=== PATIENT | male | born 1975 | race African-American/Black ===

== ENCOUNTER 2017-02-14 05:46 | Emergency (ER) | payer MEDICAID ==
[~2017-02-14] VITALS: Ht 172.7 cm; Wt 90.0 kg
[2017-02-14] MEDS ORDERED: SODIUM CHLORIDE FLUSH 10ML SYR IVF ONE (06:00)
[2017-02-14] MEDS ORDERED: MORPHINE SULFATE 4 MG/ML, 1ML IVPush ONE (06:00)
[2017-02-14] MEDS ORDERED: ONDANSETRON 2MG/ML, 2ML IVPush ONE (06:00)
[2017-02-14] MEDS ORDERED: ONDANSETRON 2MG/ML, 2ML ONE (06:05)
[2017-02-14] MEDS ORDERED: MORPHINE SULFATE 4 MG/ML, 1ML ONE (06:05)
[2017-02-14 06:25] LABS: HEMATOCRIT 45.2 % (39.2-51.8); HEMOGLOBIN 15.1 g/dL (13.7-18.0); WHITE BLOOD COUNT 10.2 x10^3/uL (3.4-10)
[2017-02-14] MEDS ORDERED: PLEASE ENTER ALLERGIES MC SCH ×2 (06:30)
[2017-02-14 06:37] LABS: BLOOD UREA NITROGEN 11 mg/dL (7-18)
[2017-02-14] MEDS ORDERED: OMNIPAQUE 350 MG/ML, 100ML BOTTLE ONE (07:23)
[2017-02-14 08:55] VITALS: BP 127/75
== END 2017-02-14 08:57 | disposition home or self-care (01) ==
LOC: EDBD 05:46 → ED 08:54
DX: S02.2XXA Fracture of nasal bones, initial encounter for closed fracture (principal); S02.32XA Fracture of orbital floor, left side, initial encounter for closed fracture; I10 Essential (primary) hypertension; Y04.0XXA Assault by unarmed brawl or fight, initial encounter; Y93.89 Activity, other specified; Y99.8 Other external cause status; Y92.410 Unspecified street and highway as the place of occurrence of the external cause
CPT/HCPCS: 36415; 70450; 70486; 71101; 74177; 80048; 82040; 85025; 96374; 96375; 99285; J2405; Q9967